=== PATIENT | male | born 1950 | race Caucasian/White ===

== ENCOUNTER → 2017-02-28 | Outpatient (CLI) | payer BC | LOC: MHCPAIN 15:07 | DX: G89.29 Other chronic pain (principal); M50.123 Cervical disc disorder at C6-C7 level with radiculopathy | CPT/HCPCS: G0463 ==

== ENCOUNTER → 2017-03-31 | Outpatient (CLI) | payer BC | LOC: MHCPAIN 13:11 | DX: M50.30 Other cervical disc degeneration, unspecified cervical region (principal); M48.02 Spinal stenosis, cervical region | CPT/HCPCS: J1100; J2250; J3010; Q9967 ==

== ENCOUNTER → 2017-04-12 | Outpatient (CLI) | payer BC | LOC: MHCPAIN 13:27 | DX: G89.29 Other chronic pain (principal); M50.90 Cervical disc disorder, unspecified, unspecified cervical region; M54.12 Radiculopathy, cervical region | CPT/HCPCS: G0463 ==

== ENCOUNTER 2017-09-11 19:12 | Inpatient (IN) | payer MEDICARE ==
[~2017-09-11] VITALS: Ht 180.3 cm; Wt 104.4 kg
[2017-09-11] MEDS ORDERED: SODIUM CHLORIDE1 GM PO (20:06)
[2017-09-11] MEDS ORDERED: ZOCOR5 MG PO (20:06)
[2017-09-11] MEDS ORDERED: NORVASC 5MG5 MG/TAB PO (20:07)
[2017-09-11] MEDS ORDERED: AIRDUO RESPICL1 EAC1 IH ×2 (20:07)
[2017-09-11 20:15] VITALS: BP 148/77; PULSE 76; TEMP 98.3
[2017-09-11] MEDS ORDERED: HYGROTON 2525 MG/TAB PO (21:21)
[2017-09-11] MEDS ORDERED: MAXIMUM D310000 IU PO (21:22)
[2017-09-11] MEDS ORDERED: FLORAJEN A20 Billion PO (21:23)
[2017-09-11] MEDS ORDERED: FOLIC ACID0.4 MG PO (21:23)
[2017-09-11] MEDS ORDERED: MOTRIN 800800 MG/TAB PO (21:24)
[2017-09-11] MEDS ORDERED: COZAAR100 MG PO (21:25)
[2017-09-11] MEDS ORDERED: PROFERRIN ES12 MG PO (21:25)
[2017-09-11] MEDS ORDERED: MICRO-K 10 EXT10 MEQ PO (21:26)
[2017-09-11] MEDS ORDERED: NATURAL SAW PA160 MG PO (21:27)
[2017-09-11] MEDS ORDERED: VITAMIN C500 MG PO (21:28)
[2017-09-11] MEDS ORDERED: VENTOLIN0.09 MG IH (21:28)
[2017-09-11 22:08] LABS: PH 7 (5-8); SQUAMOUS EPITHELIAL None Seen /hpf; URINE APPEARANCE Clear; URINE BACTERIA None Seen /hpf; URINE BILIRUBIN Negative (NEGATIVE); URINE BLOOD Negative (NEGATIVE); URINE COLOR Straw; URINE GLUCOSE Negative (NEGATIVE); URINE KETONE Negative (NEGATIVE); URINE LEUKOCYTE ESTERASE Negative (NEGATIVE); URINE NITRATE Negative (NEGATIVE); URINE PROTEIN(semi-quant) Negative (NEGATIVE); URINE RBC 0-2 /hpf; URINE UROBILINOGEN Negative (NEGATIVE)
[2017-09-11 22:17] LABS: COLLECTION METHOD CLEAN CATCH
[2017-09-11 23:48] VITALS: BP 140/86; PULSE 80; TEMP 98.2
[2017-09-12] VITALS (11 sets, daily range): BP systolic 115–140; BP diastolic 66–80; PULSE 70–83; TEMP 94–98.6
[2017-09-12 07:28] LABS: HEMATOCRIT 45.7 % (42.0-52.0); HEMOGLOBIN 15.3 g/dl (13.5-18.0); MEAN CELL VOLUME 90 fl (80.0-100.0); MEAN CORPUSCULAR HEMOGLOBIN 30 pg (27.0-31.0); MEAN CORPUSCULAR HGB CONC 34 g/dl (33.0-37.0); MEAN PLATELET VOLUME 10.8 fl (7.4-10.4); PLATELET COUNT 174 K/mm3 (130-400); RED BLOOD COUNT 5.06 M/mm3 (4.20-5.60); REDCELL DISTRIBUTION WIDTH-CV 13.7 % (11.5-14.5)
[2017-09-12 07:38] LABS: CALCIUM 8.6 mg/dL (8.4-10.2); CREATININE, serum 0.59 mg/dL (0.66-1.25); POTASSIUM 3.3 mmol/L (3.4-5.0)
[2017-09-12 11:02] LABS: BAND 6 % (0-10); LYMPHOCYTE 21 % (20.0-51.0); METAMYELOCYTE 1 % (0-0); NEUTROPHILS 51 % (42.0-75.2); PLATELET ESTIMATE NORMAL (NORMAL)
[2017-09-12 12:15] LABS: SYNOVIAL FL. MONONUCLEAR 10.5 % (0-75); SYNOVIAL FLUID RBC 3000 /mm3 (0-0); SYNOVIAL FLUID WBC 36205 /mm3 (200-600)
[2017-09-12 12:31] LABS: GLUCOSE,SYNOVIAL FLUID 68 mg/dL; TOTAL PROTEIN,SYNOVIAL FLUID 3.7 gm/dL
[2017-09-12 12:33] LABS: SYNOVIAL FLUID APPEARANCE TURBID; SYNOVIAL FLUID COLOR YELLOW
[2017-09-13] VITALS: BP 110/66; PULSE 75; TEMP 97.7
[2017-09-13 04:25] VITALS: BP 118/66; PULSE 76; TEMP 98.2
[2017-09-13 06:43] LABS: CALCIUM 8.1 mg/dL (8.4-10.2); CREATININE, serum 0.57 mg/dL (0.66-1.25); POTASSIUM 3.4 mmol/L (3.4-5.0)
[2017-09-13 07:31] VITALS: BP 128/81; PULSE 73; TEMP 98
[2017-09-13 12:06] VITALS: BP 119/71; PULSE 89; TEMP 98.5
[2017-09-13 15:43] VITALS: BP 135/67; PULSE 88; TEMP 98.5
[2017-09-13 20:00] VITALS: BP 136/62; PULSE 77; TEMP 98.2
[2017-09-14] VITALS: BP 132/72; PULSE 81; TEMP 98.4
[2017-09-14 05:16] VITALS: BP 145/72; PULSE 85; TEMP 98
[2017-09-14 07:46] VITALS: BP 142/68; PULSE 88; TEMP 98.2
[2017-09-14 11:59] VITALS: BP 144/66; PULSE 85; TEMP 98
[2017-09-14 15:35] VITALS: BP 148/74; PULSE 80; TEMP 98.5
[2017-09-14 19:31] VITALS: BP 136/59; PULSE 78; TEMP 98.4
[2017-09-15 00:07] VITALS: BP 133/73; PULSE 72; TEMP 97.8
[2017-09-15 03:57] VITALS: BP 126/73; PULSE 68; TEMP 97.3
[2017-09-15 07:15] VITALS: BP 147/83; PULSE 74; TEMP 97.7
[2017-09-15 07:25] LABS: BASO # 0.1 (0.0-0.2); BASO % 0.7 % (0.0-2.0); EOS # 0.4 (0.0-0.7); EOS % 4.3 % (0-4.0); GRAN # 5.4 (1.4-6.5); HEMATOCRIT 39.5 % (42.0-52.0); LYMPH # 1.3 (1.2-3.4); LYMPH % 15.4 % (20.0-51.0); MEAN CELL VOLUME 91 fl (80.0-100.0); MEAN CORPUSCULAR HEMOGLOBIN 30 pg (27.0-31.0); MEAN CORPUSCULAR HGB CONC 33 g/dl (33.0-37.0); MEAN PLATELET VOLUME 10.7 fl (7.4-10.4); MONO # 1.2 (0.1-0.6); MONO % 14.2 % (1.7-9.3); PLATELET COUNT 197 K/mm3 (130-400); RED BLOOD COUNT 4.34 M/mm3 (4.20-5.60); REDCELL DISTRIBUTION WIDTH-CV 13.3 % (11.5-14.5)
[2017-09-15 07:28] LABS: HEMOGLOBIN 13.2 g/dl (13.5-18.0)
[2017-09-15 08:07] LABS: ERYTHROCYTE SEDIMENTATION RATE 38 mm/hr (0-30)
[2017-09-15] MEDS ORDERED: DOXYCYCLINE 10100 MG PO (09:19)
[2017-09-15] MEDS ORDERED: ASPI325T6 PO (09:22)
[2017-09-15] MEDS ORDERED: TYLENOL 325MG325 MG PO (09:24)
[2017-09-15] MEDS ORDERED: COLCRYS0.6 MG PO (09:31)
[2017-09-15] MEDS ORDERED: NORCO 325 MG-7.1 TAB PO (09:36)
[2017-09-15] MEDS ORDERED: ULTRAM 50MG TAB50 MG PO (09:36)
[2017-09-15 11:00] VITALS: BP 142/76; PULSE 84; TEMP 98
[2017-09-15 16:11] VITALS: BP 131/70; PULSE 80; TEMP 97.9
== END 2017-09-15 16:50 | disposition home or self-care (01) | DRG 489 ==
LOC: SURG 19:12
PROVIDERS: Hospitalist; Nurse Practitioner Family; Orthopaedic Surgery; Physician Assistant
PROC: 0MDP4ZZ Extraction of Left Knee Bursa and Ligament, Percutaneous Endoscopic Approach (ICD-10-PCS; 2017-09-12)
PROC: 0S9D40Z Drainage of Left Knee Joint with Drainage Device, Percutaneous Endoscopic Approach (ICD-10-PCS; 2017-09-12)
PROC: 0SBD4ZZ Excision of Left Knee Joint, Percutaneous Endoscopic Approach (ICD-10-PCS; principal; 2017-09-12 10:00)
DX: M00.9 Pyogenic arthritis, unspecified (principal); M11.262 Other chondrocalcinosis, left knee; I10 Essential (primary) hypertension; M17.12 Unilateral primary osteoarthritis, left knee; J45.909 Unspecified asthma, uncomplicated; Z87.891 Personal history of nicotine dependence; E87.6 Hypokalemia
CPT/HCPCS: 99223-AI; 99232-AI; 99239; A9284; C1751; J0171; J0692; J1885; J2270; J2405; J2704; J3010; J3370; J7040; J7042; J7050; J7120

== ENCOUNTER → 2017-09-11 | Outpatient (CLI) | payer MEDICARE ==
[~2017-09-11] MED LIST: AIRDUO RESPICL1 EAC1 IH; COZAAR100 MG PO; FLORAJEN A20 Billion PO; FOLIC ACID0.4 MG PO; HYGROTON 2525 MG/TAB PO; MAXIMUM D310000 IU PO; MICRO-K 10 EXT10 MEQ PO; MOTRIN 800800 MG/TAB PO; NATURAL SAW PA160 MG PO; NORVASC 5MG5 MG/TAB PO; PROFERRIN ES12 MG PO; SODIUM CHLORIDE1 GM PO; VENTOLIN0.09 MG IH; VITAMIN C500 MG PO; ZOCOR5 MG PO
[2017-09-11 20:06] LABS: SYNOVIAL FL. MONONUCLEAR 13.9 % (0-75); SYNOVIAL FLUID APPEARANCE TURBID; SYNOVIAL FLUID COLOR YELLOW; SYNOVIAL FLUID RBC 4000 /mm3 (0-0); SYNOVIAL FLUID WBC 46588 /mm3 (200-600)
== END ==
LOC: ZCOL.LAB 19:48
DX: A41.9 Sepsis, unspecified organism (principal)